=== PATIENT | female | born 1960 | race Caucasian/White ===

== ENCOUNTER → 2020-11-25 | Outpatient (CLI) | payer BC | LOC: MAMO 14:20 | DX: Z12.31 Encounter for screening mammogram for malignant neoplasm of breast (principal); Z78.0 Asymptomatic menopausal state | CPT/HCPCS: 77063; 77067 ==

== ENCOUNTER → 2021-11-29 | Outpatient (CLI) | payer BC | LOC: MAMO 09:22 | DX: Z12.31 Encounter for screening mammogram for malignant neoplasm of breast (principal) | CPT/HCPCS: 77063; 77067 ==